=== PATIENT | male | born 1950 | race Caucasian/White ===

== ENCOUNTER 2017-04-11 08:20 | Day surgery (SDC) | payer OTHER ==
[~2017-04-11] VITALS: Ht 172.7 cm; Wt 74.8 kg
[~2017-04-11 08:20] MED LIST: ASPIR-LOW81 MG PO; DIOVAN HCT 81 TABLET PO; LIPITOR40 MG PO; LITE COAT ASPI325 M1 PO; METOPROLOL SUCC25 MG PO; METOPROLOL SUCC50 MG PO; PAXIL20 MG PO; TOPROL XL25 MG PO
[2017-04-11 08:39] VITALS: BP 149/83
[2017-04-11] MEDS ORDERED: NORCO 5/3251 TABLET PO (11:51)
[2017-04-11 13:12] VITALS: BP 121/76
[2017-04-11 13:56] VITALS: BP 126/76
== END 2017-04-11 14:20 | disposition home or self-care (01) ==
LOC: SDC 08:20
PROC: 0YU50JZ Supplement Right Inguinal Region with Synthetic Substitute, Open Approach (ICD-10-PCS; principal; 2017-04-11)
DX: K40.90 Unilateral inguinal hernia, without obstruction or gangrene, not specified as recurrent (principal); I25.10 Atherosclerotic heart disease of native coronary artery without angina pectoris; I10 Essential (primary) hypertension; E78.00 Pure hypercholesterolemia, unspecified; Z79.82 Long term (current) use of aspirin; Z79.01 Long term (current) use of anticoagulants; Z95.1 Presence of aortocoronary bypass graft; Z95.2 Presence of prosthetic heart valve; Z82.3 Family history of stroke; Z82.49 Family history of ischemic heart disease and other diseases of the circulatory system; Z80.1 Family history of malignant neoplasm of trachea, bronchus and lung
CPT/HCPCS: 93005; C1781; J0131; J0330; J0690; J1100; J2250; J2405; J3010